=== PATIENT | female | born 1975 | race African-American/Black ===

== ENCOUNTER 2016-12-04 12:26 | Emergency (ER) | payer MEDICAID ==
[2016-12-04 13:32] LABS: BASOPHILS 0.2 % (0.0-2.0); HEMATOCRIT 34.2 % (36.0-48.0); HEMOGLOBIN 10.6 g/dL (12-16); IMMATURE GRANULOCYTES 0.2 % (0-5); LYMPHOCYTES 15.9 % (15-50); MCH 24.4 pg (26.0-34.0); MCV 78.6 fL (80.0-100.0); MONOCYTES 6.9 % (2-11); NEUTROPHILS 75.8 % (40-80); PLATELET COUNT 173 10x3/uL (130-400); RBC 4.35 10x6/uL (4.00-5.40); WBC 9.9 10x3/uL (4.8-10.8)
[2016-12-04 13:45] LABS: HCG SERUM NEGATIVE (NEGATIVE)
[2016-12-04 13:56] LABS: APPEARANCE CLOUDY (CLEAR); BILIRUBIN NEGATIVE (NEGATIVE); COLOR RED (YELLOW); GLUCOSE NEGATIVE (NEGATIVE); KETONE NEGATIVE (NEGATIVE); LEUKOCYTE ESTERASE 2+ (NEGATIVE); NITRITE POSITIVE (NEGATIVE); PROTEIN 3+ mg/dL (NEGATIVE); UROBILINOGEN NORMAL (NORMAL)
[2016-12-04 13:58] LABS: BACTERIA FEW /hpf (NONE SEEN); EPITHELIAL CELLS 0-5 /hpf (0-5); MUCUS <1+ /lpf (NONE SEEN); RED CELLS - URINE >50 /hpf (0-5)
[2016-12-04 14:33] LABS: ALBUMIN 3.5 g/dL (3.4-5.0); ANION GAP 9.2 mmol/L (8-16); BILIRUBIN - TOTAL 0.41 mg/dL (0.2-1.3); CARBON DIOXIDE 29.5 mmol/L (21.0-32.0); CREATININE - SERUM 0.9 mg/dL (0.6-1.3); POTASSIUM - SERUM 3.7 mmol/L (3.5-5.1); PROTEIN - SERUM 7.3 g/dL (6.4-8.2)
== END 2016-12-04 15:34 | disposition home or self-care (01) ==
LOC: D.ER 12:26
PROVIDERS: Emergency Medicine
DX: N83.209 Unspecified ovarian cyst, unspecified side (principal); N39.0 Urinary tract infection, site not specified

== ENCOUNTER 2017-01-14 22:14 | Emergency (ER) | payer MEDICAID | END 2017-01-14 23:55 | disposition home or self-care (01) | LOC: D.ER 22:14 | DX: S20.219A Contusion of unspecified front wall of thorax, initial encounter (principal); W24.0XXA Contact with lifting devices, not elsewhere classified, initial encounter; Y93.89 Activity, other specified; Y92.410 Unspecified street and highway as the place of occurrence of the external cause ==

== ENCOUNTER 2017-05-12 11:57 | Emergency (ER) | payer BC, MEDICAID | END 2017-05-12 12:45 | disposition left against medical advice (07) | LOC: D.ER 11:57 | DX: M25.512 Pain in left shoulder (principal) ==